=== PATIENT | female | born 1990 | race American Indian/Alaskan Native ===

== ENCOUNTER 2018-05-04 13:16 | Emergency (ER) | payer SELFPAY ==
[2018-05-04] MEDS ORDERED: NORCO PO ONE (13:43)
[2018-05-04] MEDS ORDERED: ZOFRAN ODT PO ONE (13:43)
--- NOTE | 2018-05-04 13:51 | Emergency Department Report ---
Minor Respiratory - HPI Chief Complaint: Upper Respiratory Infection Stated Complaint: CHILLS/WEAKNESS Time Seen by Provider: 05/04/18 13:38 Duration: 5 Days Pain Location: Throat, Chest Severity: moderate Minor Respiratory: Yes Rhinorrhea, Yes Sore Throat, Yes Cough (clear sputum), Yes Chest Pain, Yes Fever (chills), No Able to Tolerate Fluids (states she is vomiting), No Ear Pain, No Sick Contacts, No Hemoptysis, No Shortness of Breath ED Review of Systems ROS: Stated complaint: CHILLS/WEAKNESS Other details as noted in HPI Comment: All other systems reviewed and negative ED Past Medical Hx - Past Medical History Previous Medical History?: No - Social History Smoking Status: Current Some Day Smoker - Medications Home Medications: Home Medications Medication Instructions Recorded Confirmed Last Taken Type Azithromycin [Zithromax] 1,000 mg PO QDAY #4 tablet 06/26/14 Unknown Rx metroNIDAZOLE [Flagyl] 500 mg PO TID #30 tablet 06/26/14 Unknown Rx ALBUTEROL Inhaler (OR & NICU) 2 puff IH QID PRN #1 inhalation 05/04/18 Unknown Rx [ProAir HFA Inhaler] Azithromycin [Zithromax Z-NIKHIL] 250 mg PO DAILY #6 tablet 05/04/18 Unknown Rx HYDROcodone/APAP 5-325 [[place] 1 each PO Q4HR PRN #12 tablet 05/04/18 Unknown Rx 5/325] Ondansetron [Zofran Odt] 4 mg PO Q8HR PRN #10 tab.rapdis 05/04/18 Unknown Rx predniSONE [Deltasone] 20 mg PO QDAY #5 tab 05/04/18 Unknown Rx Minor Respiratory Exam - Exam General: Vital signs noted. No distress. Alert and acting appropriately. HEENT: Yes Pharyngeal Erythema, Yes Moist Mucous Membranes, Yes Rhinorrhea, No Pharyngeal Exudates, No Conjuctival Injection, No Frontal Tenderness, No M axillary Tenderness Ear: Neither TM Bulge, Neither TM Erythema, Neither EAC Pain, Neither EAC Discharge Neck: Yes Supple, No Adenopathy Lungs: Yes Good Air Exchange, Yes Ronchi (right posterior base), Yes Cough, No Wheezes, No Stridor, No Labored Respirations, No Retractions, No Use of Accessory Muscles, No Other Abnormal Lung Sounds Heart: Yes Regular, No Murmur Abdomen: Yes Normal Bowel Sounds, No Tenderness, No Peritoneal Signs Skin: No Rash, No Edema Neurologic: Alert and oriented, no deficits. Musculoskeletal: Unremarkable. ED Course Vital Signs 05/04/18 13:21 Temperature 98.1 F Pulse Rate 72 Respiratory 22 Rate Blood Pressure 127/88 O2 Sat by Pulse 99 Oximetry ED Medical Decision Making - Radiology Data Radiology results: report reviewed, image reviewed CXR WNL - Medical Decision Making Patient had no further nausea vomiting here in the emergency department. Vital signs are within normal limits. Patient be discharged with prescription for Z- Nikhil as well as meds for symptomatic relief will be discharged home. Critical care attestation.: If time is entered above; I have spent that time in minutes in the direct care of this critically ill patient, excluding procedure time. ED Disposition Clinical Impression: Acute bronchitis Qualifiers: Bronchitis organism: unspecified organism Qualified Code(s): J20.9 - Acute bronchitis, unspecified Disposition: DC-01 TO HOME OR SELFCARE Is pt being admited?: No Does the pt Need Aspirin: No Condition: Stable Instructions: Acute Bronchitis (ED) Referrals: OBDULIA HENRIQUEZ MD [Primary Care Provider] - 3-5 Days Time of Disposition: 14:47
--- NOTE | 2018-05-04 14:23 | XRay Report ---
CHEST 2 VIEWS INDICATION: Productive cough. COMPARISON: None similar at this institution. FINDINGS: PA and lateral chest radiographs demonstrate normal cardiomediastinal silhouette. Clear, well-expanded lungs. Intact bones. CONCLUSION: No acute disease in the chest. Thank you for the opportunity to participate in this patient's care.
[2018-05-06 12:11] VITALS: BP 127/88
== END 2018-05-04 14:58 | disposition home or self-care (01) ==
LOC: ED 13:16
DX: J20.9 Acute bronchitis, unspecified (principal); F17.200 Nicotine dependence, unspecified, uncomplicated
CPT/HCPCS: 71046; Q0162

== ENCOUNTER 2018-08-25 19:12 | Emergency (ER) | payer SELFPAY ==
--- NOTE | 2018-08-25 21:10 | Emergency Department Report ---
- General Chief Complaint: Upper Respiratory Infection Stated Complaint: HEADACHE,SWOLLEN EYES,FACE PAIN Time Seen by Provider: 08/25/18 20:15 Source: patient Mode of arrival: Ambulatory Limitations: No Limitations - History of Present Illness MD Complaint: cough, rhinorrhea, nasal congestion -: Gradual, days(s), week(s) (3) Severity: mild Quality: dull Consistency: constant Improves With: nothing Worsens With: nothing Associated Symptoms: chills, headache, rhinorrhea, nasal congestion, sore throat, cough (productive cough), other (sinus pressure). denies: myalgias, chest pain, shortness of breath, nausea, vomiting, confusion, weight loss, hoarseness, ear pain - Related Data Previous Rx's Medication Instructions Recorded Last Taken Type Azithromycin [Zithromax] 1,000 mg PO QDAY #4 tablet 06/26/14 Unknown Rx metroNIDAZOLE [Flagyl] 500 mg PO TID #30 tablet 06/26/14 Unknown Rx ALBUTEROL Inhaler (OR & NICU) 2 puff IH QID PRN #1 inhalation 05/04/18 Unknown Rx [ProAir HFA Inhaler] Azithromycin [Zithromax Z-NIKHIL] 250 mg PO DAILY #6 tablet 05/04/18 Unknown Rx HYDROcodone/APAP 5-325 [[place] 1 each PO Q4HR PRN #12 tablet 05/04/18 Unknown Rx 5/325] Ondansetron [Zofran Odt] 4 mg PO Q8HR PRN #10 tab.rapdis 05/04/18 Unknown Rx predniSONE [Deltasone] 20 mg PO QDAY #5 tab 05/04/18 Unknown Rx ALBUTEROL Inhaler (OR & NICU) 1 puff IH Q4-6H PRN #1 inha 08/25/18 Unknown Rx [ProAir HFA Inhaler] Amoxicillin [Amoxicillin TAB] 875 mg PO BID #20 tablet 08/25/18 Unknown Rx guaiFENesin/CODEINE [Robitussin AC] 5 ml PO Q6H PRN #120 ml 08/25/18 Unknown Rx predniSONE [Deltasone] 50 mg PO QDAY #5 tab 08/25/18 Unknown Rx Allergies Allergy/AdvReac Type Severity Reaction Status Date / Time No Known Allergies Allergy Unverified 06/26/14 10:55 ED Review of Systems ROS: Stated complaint: HEADACHE,SWOLLEN EYES,FACE PAIN Other details as noted in HPI Constitutional: denies: chills, fever Eyes: denies: eye pain, eye discharge, vision change ENT: denies: ear pain, throat pain Respiratory: denies: cough, shortness of breath, wheezing Cardiovascular: denies: chest pain, palpitations Endocrine: no symptoms reported Gastrointestinal: denies: abdominal pain, nausea, diarrhea Genitourinary: denies: urgency, dysuria, discharge Musculoskeletal: denies: back pain, joint swelling, arthralgia Skin: denies: rash, lesions Neurological: denies: headache, weakness, paresthesias Psychiatric: denies: anxiety, depression Hematological/Lymphatic: denies: easy bleeding, easy bruising ED Past Medical Hx - Past Medical History Previous Medical History?: No - Surgical History Past Surgical History?: No - Social History Smoking Status: Current Every Day Smoker - Medications Home Medications: Home Medications Medication Instructions Recorded Confirmed Last Taken Type Azithromycin [Zithromax] 1,000 mg PO QDAY #4 tablet 06/26/14 Unknown Rx metroNIDAZOLE [Flagyl] 500 mg PO TID #30 tablet 06/26/14 Unknown Rx ALBUTEROL Inhaler (OR & NICU) 2 puff IH QID PRN #1 inhalation 05/04/18 Unknown Rx [ProAir HFA Inhaler] Azithromycin [Zithromax Z-NIKHIL] 250 mg PO DAILY #6 tablet 05/04/18 Unknown Rx HYDROcodone/APAP 5-325 [[place] 1 each PO Q4HR PRN #12 tablet 05/04/18 Unknown Rx 5/325] Ondansetron [Zofran Odt] 4 mg PO Q8HR PRN #10 tab.rapdis 05/04/18 Unknown Rx predniSONE [Deltasone] 20 mg PO QDAY #5 tab 05/04/18 Unknown Rx ALBUTEROL Inhaler (OR & NICU) 1 puff IH Q4-6H PRN #1 inha 08/25/18 Unknown Rx [ProAir HFA Inhaler] Amoxicillin [Amoxicillin TAB] 875 mg PO BID #20 tablet 08/25/18 Unknown Rx guaiFENesin/CODEINE [Robitussin AC] 5 ml PO Q6H PRN #120 ml 08/25/18 Unknown Rx predniSONE [Deltasone] 50 mg PO QDAY #5 tab 08/25/18 Unknown Rx ED Physical Exam - General Limitations: No Limitations General appearance: alert, in no apparent distress - Head Head exam: Present: atraumatic, normocephalic - Eye Eye exam: Present: normal appearance, PERRL Pupils: Present: normal accommodation - ENT ENT exam: Present: normal exam, mucous membranes moist, other (Congestion bilaterally was as well as the right nasal turbinate. There is some tenderness with percussion of the right maxillary sinus as well. Small effusion to the left ear) - Neck Neck exam: Present: normal inspection, full ROM - Respiratory Respiratory exam: Present: normal lung sounds bilaterally, rhonchi. Absent: respiratory distress, wheezes, rales - Cardiovascular Cardiovascular Exam: Present: regular rate, normal rhythm. Absent: systolic murmur, diastolic murmur, rubs, gallop - GI/Abdominal GI/Abdominal exam: Present: soft, normal bowel sounds - Extremities Exam Extremities exam: Present: normal inspection, normal capillary refill - Back Exam Back exam: Present: normal inspection, full ROM - Neurological Exam Neurological exam: Present: alert, oriented X3 - Psychiatric Psychiatric exam: Present: normal affect, normal mood - Skin Skin exam: Present: warm, dry, intact, normal color. Absent: rash ED Course Vital Signs 08/25/18 19:16 Temperature 98.2 F Pulse Rate 101 H Respiratory 18 Rate Blood Pressure 118/74 O2 Sat by Pulse 96 Oximetry Critical care attestation.: If time is entered above; I have spent that time in minutes in the direct care of this critically ill patient, excluding procedure time. ED Disposition Clinical Impression: Cough, Sinusitis, Bronchitis Disposition: DC- TO HOME OR SELFCARE Is pt being admited?: No Does the pt Need Aspirin: No Condition: Stable Instructions: Chronic Bronchitis (ED), Acute Bronchitis (ED), Sinusitis (ED) Prescriptions: Amoxicillin [Amoxicillin TAB] 875 mg PO BID #20 tablet predniSONE [Deltasone] 50 mg PO QDAY #5 tab ALBUTEROL Inhaler (OR & NICU) [ProAir HFA Inhaler] 1 puff IH Q4-6H PRN #1 inha PRN Reason: Cough guaiFENesin/CODEINE [Robitussin AC] 5 ml PO Q6H PRN #120 ml PRN Reason: Cough Referrals: DIANNE MARTIN MD [Primary Care Provider] - 3-5 Days Forms: Work/School Release Form(ED)
[2018-08-25 21:37] VITALS: BP 123/72
== END 2018-08-25 21:37 | disposition home or self-care (01) ==
LOC: ED 19:12
DX: J40 Bronchitis, not specified as acute or chronic (principal); J32.9 Chronic sinusitis, unspecified; F17.200 Nicotine dependence, unspecified, uncomplicated
CPT/HCPCS: 99282

== ENCOUNTER 2020-01-01 13:56 | Emergency (ER) | payer MEDICAID ==
[2020-01-01 14:07] VITALS: BP 110/60
--- NOTE | 2020-01-01 18:39 | Emergency Department Report ---
ED General Adult HPI - General Chief complaint: Skin/Abscess/Foreign Body Stated complaint: CHEST DISCOMFORT/ANXIETY/BREAST Time Seen by Provider: 01/01/20 17:49 Source: patient Mode of arrival: Wheelchair Limitations: No Limitations - History of Present Illness Initial comments: Patient is a 29-year-old female presents emergency room with complaints of lumps in her left breast that began a week ago. She states that they have been increasing in number and have become painful. She states her last menstrual cycle was 2 weeks ago. She states that she also noticed a lump present to her right axilla. She denies any fever, vomiting, diarrhea, weight loss, chills, drainage, nipple discharge. She states that her mother has a history of breast cancer. She has a past medical history of eczema and depression. She denies any allergies to medications. - Related Data Previous Rx's Medication Instructions Recorded Last Taken Type Azithromycin [Zithromax] 1,000 mg PO QDAY #4 tablet 06/26/14 Unknown Rx metroNIDAZOLE [Flagyl] 500 mg PO TID #30 tablet 06/26/14 Unknown Rx Albuterol Mdi (or & Nicu Only) 2 puff IH QID PRN #1 inhalation 05/04/18 Unknown Rx [ProAir HFA Inhaler] Azithromycin [Zithromax Z-NIKHIL] 250 mg PO DAILY #6 tablet 05/04/18 Unknown Rx HYDROcodone/APAP 5-325 [[place] 1 each PO Q4HR PRN #12 tablet 05/04/18 Unknown Rx 5/325] Ondansetron [Zofran Odt] 4 mg PO Q8HR PRN #10 tab.rapdis 05/04/18 Unknown Rx predniSONE [Deltasone] 20 mg PO QDAY #5 tab 05/04/18 Unknown Rx Albuterol Mdi (or & Nicu Only) 1 puff IH Q4-6H PRN #1 inha 08/25/18 Unknown Rx [ProAir HFA Inhaler] Amoxicillin [Amoxicillin TAB] 875 mg PO BID #20 tablet 08/25/18 Unknown Rx guaiFENesin/CODEINE [Robitussin AC] 5 ml PO Q6H PRN #120 ml 08/25/18 Unknown Rx predniSONE [Deltasone] 50 mg PO QDAY #5 tab 08/25/18 Unknown Rx Allergies Allergy/AdvReac Type Severity Reaction Status Date / Time No Known Allergies Allergy Unverified 06/26/14 10:55 ED Review of Systems ROS: Stated complaint: CHEST DISCOMFORT/ANXIETY/BREAST Other details as noted in HPI Comment: All other systems reviewed and negative ED Past Medical Hx - Past Medical History Previous Medical History?: No - Surgical History Past Surgical History?: No - Social History Smoking Status: Current Every Day Smoker - Medications Home Medications: Home Medications Medication Instructions Recorded Confirmed Last Taken Type Azithromycin [Zithromax] 1,000 mg PO QDAY #4 tablet 06/26/14 Unknown Rx metroNIDAZOLE [Flagyl] 500 mg PO TID #30 tablet 06/26/14 Unknown Rx Albuterol Mdi (or & Nicu Only) 2 puff IH QID PRN #1 inhalation 05/04/18 Unknown Rx [ProAir HFA Inhaler] Azithromycin [Zithromax Z-NIKHIL] 250 mg PO DAILY #6 tablet 05/04/18 Unknown Rx HYDROcodone/APAP 5-325 [[place] 1 each PO Q4HR PRN #12 tablet 05/04/18 Unknown Rx 5/325] Ondansetron [Zofran Odt] 4 mg PO Q8HR PRN #10 tab.rapdis 05/04/18 Unknown Rx predniSONE [Deltasone] 20 mg PO QDAY #5 tab 05/04/18 Unknown Rx Albuterol Mdi (or & Nicu Only) 1 puff IH Q4-6H PRN #1 inha 08/25/18 Unknown Rx [ProAir HFA Inhaler] Amoxicillin [Amoxicillin TAB] 875 mg PO BID #20 tablet 08/25/18 Unknown Rx guaiFENesin/CODEINE [Robitussin AC] 5 ml PO Q6H PRN #120 ml 08/25/18 Unknown Rx predniSONE [Deltasone] 50 mg PO QDAY #5 tab 08/25/18 Unknown Rx ED Physical Exam - General Limitations: No Limitations General appearance: alert, in no apparent distress - Head Head exam: Present: atraumatic, normocephalic - Eye Eye exam: Present: normal appearance - ENT ENT exam: Present: mucous membranes moist - Respiratory Respiratory exam: Present: normal lung sounds bilaterally. Absent: respiratory distress, wheezes, rales, rhonchi, stridor, accessory muscle use, decreased breath sounds, prolonged expiratory - Cardiovascular Cardiovascular Exam: Present: regular rate, normal rhythm, normal heart sounds. Absent: systolic murmur, diastolic murmur, rubs, gallop - Neurological Exam Neurological exam: Present: alert, oriented X3 - Psychiatric Psychiatric exam: Present: normal affect, normal mood - Skin Skin exam: Present: warm, dry, other (vest finisher: JESSICA rae, there are multiple nodules present to the left breast at the 12 oclock and 3oclock position, no nipple retraction, no skin changes, no erythema, no nodules in the left axilla, no peau d'orange, no nipple discharge, in the right axilla there is a 1 cm area of induration and erythema, no fluctuance, no drainage, no necrosis, no obvious palpable nodules to the right breast) ED Course Vital Signs 01/01/20 14:06 Temperature 98.7 F Pulse Rate 65 Respiratory 18 Rate Blood Pressure 110/60 [Right] O2 Sat by Pulse 100 Oximetry ED Medical Decision Making - Medical Decision Making Patient is a 29-year-old female presents emergency room with complaints of lumps in her left breast that began a week ago. She states that they have been increasing in number and have become painful. She states her last menstrual cycle was 2 weeks ago. She states that she also noticed a lump present to her right axilla. She denies any fever, vomiting, diarrhea, weight loss, chills, drainage, nipple discharge. She states that her mother has a history of breast cancer. She has a past medical history of eczema and depression. She denies any allergies to medications. vitals are normal. on exam: vest finisher: JESSICA rae, there are multiple nodules present to the left breast at the 12 oclock and 3oclock position, no nipple retraction, no skin changes, no erythema, no nodules in the left axilla, no peau d'orange, no nipple discharge, in the right axilla there is a 1 cm area of induration and erythema, no fluctuance, no drainage, no necrosis, no obvious palpable nodules to the right breast. No obvious drainable abscess at this time, does not need I&D at this time. Discussed with patient to use warm compresses and have the area reexamined in [address] pt on keflex for very mild infection. Patient will be referred to [facility] for further evaluation of breast nodules. Basic labs ordered to evaluate for CBC abnormalities or inflammatory abnormalities. Advised patient that we would get lab work and then I would give her the appropriate referrals. I called the lab to see what was taking so long for the patient's lab work. The lab states that they are having IT issues and that the labs are not crossing over. I filled out a paper form and sent it down to the lab for patient to have lab work done. I was advised by nurse that patient no longer wanted to wait and he advised patient that she would need to sign out AGAINST MEDICAL ADVICE. Patient refused to sign out AGAINST MEDICAL ADVICE and left from the emergency department. She is alert and oriented x4, she has decision-making capacity, she has no distracting injury. pt left prior to receiving blood work, receiving keflex prescription, and referrals. Critical care attestation.: If time is entered above; I have spent that time in minutes in the direct care of this critically ill patient, excluding procedure time. ED Disposition Clinical Impression: Breast nodule, Axillary abscess Disposition: LEFT AGAINST MED ADVICE Is pt being admited?: No Does the pt Need Aspirin: No Condition: Undetermined Referrals: PRIMARY CAREMD [Primary Care Provider] - RIK VALENTE MD [Staff Physician] - [facility] [Provider Group] - [facility] [Provider Group] - [facility]
== END 2020-01-01 19:15 | disposition left against medical advice (07) ==
LOC: ED 13:56
DX: L02.412 Cutaneous abscess of left axilla (principal); N63.0 Unspecified lump in unspecified breast; F17.200 Nicotine dependence, unspecified, uncomplicated; Z79.2 Long term (current) use of antibiotics; Z79.899 Other long term (current) drug therapy

== ENCOUNTER 2020-07-07 11:13 | Emergency (ER) | payer MEDICAID ==
[2020-07-07] MEDS ORDERED: diphenhydrAMINE 50 MG/ML VIAL IV ONE (12:34)
[2020-07-07] MEDS ORDERED: METOCLOPRAMIDE 10 MG/2 ML INJ IV ONE (12:34)
[2020-07-07] MEDS ORDERED: LORazepam 2 MG/ML VIAL IM PRN (12:35)
[2020-07-07] MEDS ORDERED: HALOPERIDOL LACTATE 5 MG/1 ML INJ IM PRN (12:35)
[2020-07-07 12:43] LABS: Bilirubin,Urine NEG (Negative); Blood,Urine SM (Negative); Color,Urine Yellow (Yellow); Mucus,Urine FEW /HPF; Protein,Urine <15 mg/dL mg/dL (Negative); Urobilinogen,Urine < 2.0 mg/dL (<2.0)
[2020-07-07 12:46] LABS: HCG Qualitative,Urine Negative (Negative)
[2020-07-07 12:49] LABS: Amphetamine Screen,Urine Negative; Benzodiazepines Screen,Urine Negative; Methadone Screen,Urine Negative; Opiate Screen,Urine Negative
[2020-07-07] MEDS ORDERED: D5W/0.45% NACL 1,000 ML IV SCH (13:00)
[2020-07-07 13:19] LABS: Cannabinoid Screen,Urine PRESUMPTIVE POSITIVE; Cocaine Screen,Urine PRESUMPTIVE POSITIVE
--- NOTE | 2020-07-07 13:38 | Cat Scan Report ---
CT HEAD WITHOUT CONTRAST INDICATION / CLINICAL INFORMATION: dizzy weak intoxicated. TECHNIQUE: All CT scans at this location are performed using CT dose reduction for ALARA by means of automated exposure control. COMPARISON: None available. FINDINGS: HEMORRHAGE: None. EXTRA-AXIAL SPACES: Normal in size and morphology for the patient's age. VENTRICULAR SYSTEM: Normal in size and morphology for the patient's age. CEREBRAL PARENCHYMA: No significant abnormality. No acute territorial infarct. MIDLINE SHIFT / HERNIATION: None. CEREBELLUM / BRAINSTEM: No significant abnormality. ORBITS: Normal as visualized. SOFT TISSUES: No significant abnormality. SKULL: No significant abnormality. PARANASAL SINUSES / MASTOID AIR CELLS: Normal as visualized. ADDITIONAL FINDINGS: None. IMPRESSION: 1. No acute intracranial abnormality. Signer Name: Omi Cordero MD Signed: 07/07/2020 1:34 PM Workstation Name: [id number]
[2020-07-07 13:54] LABS: Hematocrit 35.2 % (30.3-42.9); Hemoglobin 12.8 gm/dl (10.1-14.3)
[2020-07-07 14:06] LABS: Alanine Aminotransferase 12 units/L (7-56); Albumin 4.2 g/dL (3.9-5); BUN/Creatinine Ratio 15; Blood Urea Nitrogen 12 mg/dL (7-17); Calcium 8.6 mg/dL (8.4-10.2); Hemolysis Index 5
[2020-07-07] MEDS ORDERED: POTASSIUM CHLORIDE ER 20 MEQ TAB PO ONE (15:16)
--- NOTE | 2020-07-07 15:17 | Emergency Department Report ---
ED General Adult HPI - General Chief complaint: Medical Clearance Stated complaint: I smoked a blunt Time Seen by Provider: 07/07/20 12:05 Source: patient, EMS ( EMS documentation not available at time of chart dictation ), RN notes reviewed Mode of arrival: Stretcher Limitations: Other (Patient is intoxicated) - History of Present Illness Initial comments: The patient was evaluated in the emergency department for symptoms described in the history of present illness. He/she was evaluated in the context of the global COVID-19 pandemic, which necessitated consideration that the patient might be at risk for infection with the virus that causes COVID-19. Institutional protocols and algorithms that pertain to the evaluation of patients at risk for COVID-19 are in a state of rapid change based on information released by regulatory bodies including the CDC and federal and state organizations. These policies and algorithms were followed during the patient's care in the emergency department. Please note that these policies, procedures and recommendations changed on a rapid basis. During the history and physical examination, I am chaperoned by nurse GIANNI HERNANDEZ This is a 30-year-old female. She is brought to the hospital by emergency medical services. Patient reports that she recreationally consumes marijuana and cocaine yesterday. The patient reports that she feels off, weak, nauseous, malaise, and dizzy. She is not homicidal or suicidal. She endorses out of body sensation. Patient denies physical pain, the patient is not sure she is having hallucinations. The patient states that she was consuming these drugs for recreational reasons. -: Gradual Severity scale (0 -10): 0 Consistency: constant Improves with: rest Worsens with: movement - Related Data Previous Rx's Medication Instructions Recorded Last Taken Type Azithromycin [Zithromax] 1,000 mg PO QDAY #4 tablet 06/26/14 Unknown Rx metroNIDAZOLE [Flagyl] 500 mg PO TID #30 tablet 06/26/14 Unknown Rx Albuterol Mdi (or & Nicu Only) 2 puff IH QID PRN #1 inhalation 05/04/18 Unknown Rx [ProAir HFA Inhaler] Azithromycin [Zithromax Z-NIKHIL] 250 mg PO DAILY #6 tablet 05/04/18 Unknown Rx Ondansetron [Zofran Odt] 4 mg PO Q8HR PRN #10 tab.rapdis 05/04/18 Unknown Rx predniSONE [Deltasone] 20 mg PO QDAY #5 tab 05/04/18 Unknown Rx Albuterol Mdi (or & Nicu Only) 1 puff IH Q4-6H PRN #1 inha 08/25/18 Unknown Rx [ProAir HFA Inhaler] Amoxicillin [Amoxicillin TAB] 875 mg PO BID #20 tablet 08/25/18 Unknown Rx predniSONE [Deltasone] 50 mg PO QDAY #5 tab 08/25/18 Unknown Rx Potassium Chloride 20 meq PO QDAY #30 packet 07/07/20 Unknown Rx Allergies Allergy/AdvReac Type Severity Reaction Status Date / Time No Known Allergies Allergy Unverified 06/26/14 10:55 ED Review of Systems ROS: Stated complaint: AMS Other details as noted in HPI Constitutional: denies: fever Eyes: denies: eye discharge ENT: denies: epistaxis Respiratory: denies: cough Cardiovascular: other (Dizziness) Gastrointestinal: nausea Neurological: weakness Psychiatric: anxiety. denies: homicidal thoughts, suicidal thoughts ED Past Medical Hx - Past Medical History Previous Medical History?: No - Surgical History Past Surgical History?: No - Social History Smoking Status: Current Every Day Smoker - Medications Home Medications: Home Medications Medication Instructions Recorded Confirmed Last Taken Type Azithromycin [Zithromax] 1,000 mg PO QDAY #4 tablet 06/26/14 Unknown Rx metroNIDAZOLE [Flagyl] 500 mg PO TID #30 tablet 06/26/14 Unknown Rx Albuterol Mdi (or & Nicu Only) 2 puff IH QID PRN #1 inhalation 05/04/18 Unknown Rx [ProAir HFA Inhaler] Azithromycin [Zithromax Z-NIKHIL] 250 mg PO DAILY #6 tablet 05/04/18 Unknown Rx Ondansetron [Zofran Odt] 4 mg PO Q8HR PRN #10 tab.rapdis 05/04/18 Unknown Rx predniSONE [Deltasone] 20 mg PO QDAY #5 tab 05/04/18 Unknown Rx Albuterol Mdi (or & Nicu Only) 1 puff IH Q4-6H PRN #1 inha 08/25/18 Unknown Rx [ProAir HFA Inhaler] Amoxicillin [Amoxicillin TAB] 875 mg PO BID #20 tablet 08/25/18 Unknown Rx predniSONE [Deltasone] 50 mg PO QDAY #5 tab 08/25/18 Unknown Rx Potassium Chloride 20 meq PO QDAY #30 packet 07/07/20 Unknown Rx ED Physical Exam - General Limitations: Other (Patient is intoxicated) General appearance: appears intoxicated, anxious - Head Head exam: Present: atraumatic, normocephalic - Eye Eye exam: Present: normal appearance, PERRL, EOMI, other (Visual acuity is intact to finger counting and color perception to a close distance). Absent: nystagmus - ENT ENT exam: Present: normal exam, normal orophraynx, mucous membranes moist, normal external ear exam - Neck Neck exam: Present: normal inspection, full ROM. Absent: tenderness, meningism us - Respiratory Respiratory exam: Present: normal lung sounds bilaterally. Absent: respiratory distress, wheezes, rales, rhonchi, stridor, decreased breath sounds - Cardiovascular Cardiovascular Exam: Present: regular rate, normal rhythm, normal heart sounds. Absent: bradycardia, tachycardia, irregular rhythm, systolic murmur, diastolic murmur, rubs, gallop - GI/Abdominal GI/Abdominal exam: Present: soft. Absent: distended, tenderness, guarding, rebound, rigid, pulsatile mass - Extremities Exam Extremities exam: Present: normal inspection, full ROM, other (2+ pulses noted in the bilateral upper and lower extremities. There is no palpable cord. negative Homans sign. Muscular compartments are soft. The pelvis is stable.). Absent: pedal edema, calf tenderness - Back Exam Back exam: Present: normal inspection. Absent: tenderness, CVA tenderness (R), CVA tenderness (L), paraspinal tenderness, vertebral tenderness - Neurological Exam Neurological exam: Present: other (No facial droop. Tongue midline. Extraocular movements intact bilaterally. Facial sensation intact to light touch in V1, V2, V3 distribution bilaterally. 5 and a 5 strength in 4 extremities. Sensation intact to light touch in 4 extremities.) - Psychiatric Psychiatric exam: Present: anxious. Absent: homicidal ideation, suicidal idea tion - Skin Skin exam: Present: warm, dry, intact, normal color. Absent: rash ED Course Vital Signs 07/07/20 07/07/20 07/07/20 11:38 11:45 11:56 Temperature 97.9 F Pulse Rate 67 69 Respiratory 17 18 Rate Blood Pressure 128/83 Blood Pressure 121/74 [Left] O2 Sat by Pulse 98 100 100 Oximetry 04/09/2107/07/20 07/07/20 12:00 12:16 12:30 Temperature Pulse Rate 65 67 69 Respiratory 23 20 21 Rate Blood Pressure 105/81 105/81 Blood Pressure [Left] O2 Sat by Pulse 100 100 100 Oximetry 07/07/20 07/07/20 07/07/20 12:46 13:00 13:15 Temperature Pulse Rate 67 74 80 Respiratory 16 13 16 Rate Blood Pressure 124/79 124/79 137/89 Blood Pressure [Left] O2 Sat by Pulse 96 100 Oximetry 07/07/20 07/07/20 07/07/20 13:40 13:46 14:00 Temperature Pulse Rate 95 H 64 64 Respiratory 17 19 16 Rate Blood Pressure Blood Pressure [Left] O2 Sat by Pulse 100 100 100 Oximetry 07/07/20 07/07/20 07/07/20 14:16 14:30 14:46 Temperature Pulse Rate 76 65 67 Respiratory 14 15 14 Rate Blood Pressure 111/62 111/73 Blood Pressure [Left] O2 Sat by Pulse 100 100 99 Oximetry 07/07/20 07/07/20 07/07/20 15:00 15:16 15:30 Temperature Pulse Rate 71 72 77 Respiratory 13 14 16 Rate Blood Pressure 111/73 109/73 109/73 Blood Pressure [Left] O2 Sat by Pulse 99 99 99 Oximetry 07/07/20 17:20 Temperature Pulse Rate 67 Respiratory 16 Rate Blood Pressure Blood Pressure 108/70 [Left] O2 Sat by Pulse Oximetry ED Medical Decision Making - Lab Data Result diagrams: 07/07/20 13:08 07/07/20 13:08 Vital Signs 07/07/20 11:56 Temperature 97.9 F Pulse Rate 69 Respiratory 18 Rate Blood Pressure 121/74 [Left] O2 Sat by Pulse 100 Oximetry Lab Results 07/07/20 07/07/20 07/07/20 Range/Units 12:11 12:11 13:08 Hgb 12.8 (10.1-14.3) gm/dl Hct 35.2 (30.3-42.9) % Plt Count 413 (140-440) K/mm3 Sodium (137-145) mmol/L Potassium (3.6-5.0) mmol/L Chloride (98-107) mmol/L Carbon Dioxide (22-30) mmol/L Anion Gap mmol/L BUN (7-17) mg/dL Creatinine (0.6-1.2) mg/dL Estimated GFR ml/min BUN/Creatinine Ratio % Glucose (65-100) mg/dL Calcium (8.4-10.2) mg/dL Magnesium (1.7-2.3) mg/dL Total Bilirubin (0.1-1.2) mg/dL AST (5-40) units/L ALT (7-56) units/L Alkaline Phosphatase (35-129) units/L Total Creatine Kinase (30-135) units/L Total Protein (6.3-8.2) g/dL Albumin (3.9-5) g/dL Albumin/Globulin Ratio % HCG, Quant (0-4) mIU/mL Urine Color Yellow (Yellow) Urine Turbidity Cloudy (Clear) Urine pH 7.0 (5.0-7.0) Ur Specific [place] 1.014 (1.003-1.030) Urine Protein <15 mg/dl (Negative) mg/dL Urine Glucose (UA) Neg (Negative) mg/dL Urine Ketones Neg (Negative) mg/dL Urine Blood Sm (Negative) Urine Nitrite Neg (Negative) Urine Bilirubin Neg (Negative) Urine Urobilinogen < 2.0 (<2.0) mg/dL Ur Leukocyte Esterase Mod (Negative) Urine WBC (Auto) 11.0 H (0.0-6.0) /HPF Urine RBC (Auto) 3.0 (0.0-6.0) /HPF U Epithel Cells (Auto) 29.0 H (0-13.0) /HPF Urine Mucus Few /HPF Urine Yeast (Budding) Few /HPF Urine HCG, Qual Negative (Negative) Salicylates (2.8-20.0) mg/dL Urine Opiates Screen Negative Urine Methadone Screen Negative Acetaminophen (10.0-30.0) ug/mL Ur Barbiturates Screen Negative Ur Phencyclidine Scrn Negative Ur Amphetamines Screen Negative U Benzodiazepines Scrn Negative Urine Cocaine Screen Presumptive positive U Marijuana (THC) Screen Presumptive positive Drugs of Abuse Note Disclamer Plasma/Serum Alcohol (0-0.07) % 07/07/20 07/07/20 07/07/20 Range/Units 13:08 13:08 13:08 Hgb (10.1-14.3) gm/dl Hct (30.3-42.9) % Plt Count (140-440) K/mm3 Sodium 137 (137-145) mmol/L Potassium 3.4 L (3.6-5.0) mmol/L Chloride 104.1 (98-107) mmol/L Carbon Dioxide 22 (22-30) mmol/L Anion Gap 14 mmol/L BUN 12 (7-17) mg/dL Creatinine 0.8 (0.6-1.2) mg/dL Estimated GFR > 60 ml/min BUN/Creatinine Ratio 15 % Glucose 169 H (65-100) mg/dL Calcium 8.6 (8.4-10.2) mg/dL Magnesium 1.80 (1.7-2.3) mg/dL Total Bilirubin 0.40 (0.1-1.2) mg/dL AST 22 (5-40) units/L ALT 12 (7-56) units/L Alkaline Phosphatase 73 (35-129) units/L Total Creatine Kinase 289 H (30-135) units/L Total Protein 7.2 (6.3-8.2) g/dL Albumin 4.2 (3.9-5) g/dL Albumin/Globulin Ratio 1.4 % HCG, Quant < 2 (0-4) mIU/mL Urine Color (Yellow) Urine Turbidity (Clear) Urine pH (5.0-7.0) Ur Specific [place] (1.003-1.030) Urine Protein (Negative) mg/dL Urine Glucose (UA) (Negative) mg/dL Urine Ketones (Negative) mg/dL Urine Blood (Negative) Urine Nitrite (Negative) Urine Bilirubin (Negative) Urine Urobilinogen (<2.0) mg/dL Ur Leukocyte Esterase (Negative) Urine WBC (Auto) (0.0-6.0) /HPF Urine RBC (Auto) (0.0-6.0) /HPF U Epithel Cells (Auto) (0-13.0) /HPF Urine Mucus /HPF Urine Yeast (Budding) /HPF Urine HCG, Qual (Negative) Salicylates < 0.3 L (2.8-20.0) mg/dL Urine Opiates Screen Urine Methadone Screen Acetaminophen (10.0-30.0) ug/mL Ur Barbiturates Screen Ur Phencyclidine Scrn Ur Amphetamines Screen U Benzodiazepines Scrn Urine Cocaine Screen U Marijuana (THC) Screen Drugs of Abuse Note Plasma/Serum Alcohol (0-0.07) % 04/06/21 04/06/21 Range/Units 13:08 13:08 Hgb (10.1-14.3) gm/dl Hct (30.3-42.9) % Plt Count (140-440) K/mm3 Sodium (137-145) mmol/L Potassium (3.6-5.0) mmol/L Chloride (98-107) mmol/L Carbon Dioxide (22-30) mmol/L Anion Gap mmol/L BUN (7-17) mg/dL Creatinine (0.6-1.2) mg/dL Estimated GFR ml/min BUN/Creatinine Ratio % Glucose (65-100) mg/dL Calcium (8.4-10.2) mg/dL Magnesium (1.7-2.3) mg/dL Total Bilirubin (0.1-1.2) mg/dL AST (5-40) units/L ALT (7-56) units/L Alkaline Phosphatase (35-129) units/L Total Creatine Kinase (30-135) units/L Total Protein (6.3-8.2) g/dL Albumin (3.9-5) g/dL Albumin/Globulin Ratio % HCG, Quant (0-4) mIU/mL Urine Color (Yellow) Urine Turbidity (Clear) Urine pH (5.0-7.0) Ur Specific [place] (1.003-1.030) Urine Protein (Negative) mg/dL Urine Glucose (UA) (Negative) mg/dL Urine Ketones (Negative) mg/dL Urine Blood (Negative) Urine Nitrite (Negative) Urine Bilirubin (Negative) Urine Urobilinogen (<2.0) mg/dL Ur Leukocyte Esterase (Negative) Urine WBC (Auto) (0.0-6.0) /HPF Urine RBC (Auto) (0.0-6.0) /HPF U Epithel Cells (Auto) (0-13.0) /HPF Urine Mucus /HPF Urine Yeast (Budding) /HPF Urine HCG, Qual (Negative) Salicylates (2.8-20.0) mg/dL Urine Opiates Screen Urine Methadone Screen Acetaminophen 5.0 L (10.0-30.0) ug/mL Ur Barbiturates Screen Ur Phencyclidine Scrn Ur Amphetamines Screen U Benzodiazepines Scrn Urine Cocaine Screen U Marijuana (THC) Screen Drugs of Abuse Note Plasma/Serum Alcohol < 0.01 (0-0.07) % Vital Signs 07/07/20 07/07/20 07/07/20 11:38 11:45 11:56 Temperature 97.9 F Pulse Rate 67 69 Respiratory 17 18 Rate Blood Pressure 128/83 Blood Pressure 121/74 [Left] O2 Sat by Pulse 98 100 100 Oximetry 07/07/20 07/07/20 07/07/20 12:00 12:16 12:30 Temperature Pulse Rate 65 67 69 Respiratory 23 20 21 Rate Blood Pressure 105/81 105/81 Blood Pressure [Left] O2 Sat by Pulse 100 100 100 Oximetry 07/07/20 07/07/20 07/07/20 12:46 13:00 13:15 Temperature Pulse Rate 67 74 80 Respiratory 16 13 16 Rate Blood Pressure 124/79 124/79 137/89 Blood Pressure [Left] O2 Sat by Pulse 96 100 Oximetry 07/07/20 07/07/20 07/07/20 13:40 13:46 14:00 Temperature Pulse Rate 95 H 64 64 Respiratory 17 19 16 Rate Blood Pressure Blood Pressure [Left] O2 Sat by Pulse 100 100 100 Oximetry 07/07/20 07/07/20 07/07/20 14:16 14:30 14:46 Temperature Pulse Rate 76 65 67 Respiratory 14 15 14 Rate Blood Pressure 111/62 111/73 Blood Pressure [Left] O2 Sat by Pulse 100 100 99 Oximetry 07/07/20 07/07/20 07/07/20 15:00 15:16 15:30 Temperature Pulse Rate 71 72 77 Respiratory 13 14 16 Rate Blood Pressure 111/73 109/73 109/73 Blood Pressure [Left] O2 Sat by Pulse 99 99 99 Oximetry 07/07/20 17:20 Temperature Pulse Rate 67 Respiratory 16 Rate Blood Pressure Blood Pressure 108/70 [Left] O2 Sat by Pulse Oximetry - EKG Data -: EKG Interpreted by Mi EKG shows normal: sinus rhythm Rate: normal - EKG Data When compared to previous EKG there are: previous EKG unavailable 07/07/20 16:58 EKG interpreted at 12: 15 Sinus rhythm, 73 bpm. Normal axis, QTC prolonged, 477 ms. Premature atrial com plex, high left ventricular voltage, question juvenile T wave inversion V2. Abnormal EKG. Not a STEMI. - Radiology Data Radiology results: report reviewed, image reviewed CT HEAD WITHOUT CONTRAST INDICATION / CLINICAL INFORMATION: dizzy weak intoxicated. TECHNIQUE: All CT scans at this location are performed using CT dose reduction for ALARA by means of automated exposure control. COMPARISON: None available. FINDINGS: HEMORRHAGE: None. EXTRA-AXIAL SPACES: Normal in size and morphology for the patient's age. VENTRICULAR SYSTEM: Normal in size and mo rphology for the patient's age. CEREBRAL PARENCHYMA: No significant abnormality. No acute territorial infarct. MIDLINE SHIFT / HERNIATION: None. CEREBELLUM / BRAINSTEM: No significant abnormality. ORBITS: Normal as visualized. SOFT TISSUES: No significant abnormality. SKULL: No significant abnormality. PARANASAL SINUSES / MASTOID AIR CELLS: Normal as visualized. ADDITIONAL FINDINGS: None. IMPRESSION: 1. No acute intracranial abnormality. Signer Name: Omi Cordero MD Signed: 07/07/2020 12:34 PM Workstation Name: [id number] - Medical Decision Making Differential diagnosis, including but not limited to: Cocaine intoxication, marijuana intoxication, polysubstance intoxication, intracranial injury assessment and plan: 30-year-old female who is clinically intoxicated at this time, without evidence of blunt trauma or penetrating trauma, who is anxious, but not homicidal, not suicidal, and cooperative. Laboratory studies unremarkable for emergent toxicologic ingestion which would require emergent intervention or antidote at this time. She is moving 4 extremities, has become clinically more sober while here, has had no active vomiting, and is able to ambulate with minimal assistance. Patient provided verbal consent for her medical information to be discussed with family and godmother. Contacted got brother at listed phone number, nobody answered, voicemail box was full, so we were unable to leave a message for call back. Patient's listed phone number is actually her phone number, and does not attach or connect to either her aunt, or her mother. The patient is observed in this department for hours without clinical decompensation, with no active vomiting, and after appropriate laboratory studies and radiographic/radiology studies, it appears that emergent medical conditions have been excluded. Patient may be discharged once clinically sober, or once a sober friend, family member can come by and pick her up. Critical care attestation.: If time is entered above; I have spent that time in minutes in the direct care of this critically ill patient, excluding procedure time. ED Disposition Clinical Impression: History of cocaine abuse, History of marijuana use, Hypokalemia Disposition: DC-01 TO HOME OR SELFCARE Is pt being admited?: No Does the pt Need Aspirin: No Condition: Good Instructions: Stimulant Use Disorder-Cocaine, Cannabis Use Disorder Additional Instructions: We recommend that the patient avoid consumption of cocaine, marijuana, alcohol, and recreational drugs. Consumption of the aforementioned may cause addiction, , disability, paralysis, loss of quality of life. We also recommend that the patient not drive or operate motor vehicles for the next 6 months, or until cleared to do so by a primary care doctor. We recommend that the patient follow-up with a primary care doctor within the next week. Please take the potassium supplementation as directed. Please return to the emergency room right away with new pain, worsened pain, migration of pain, projectile vomiting, change in mental status, confusion, inability to tolerate liquid feeds, new, worsened or different symptoms not present on the initial emergency room evaluation. Prescriptions: Potassium Chloride 20 meq PO QDAY #30 packet Referrals: RIK RODRIGUEZ MD [Staff Physician] - 3-5 Days [facility] [Provider Group] - 3-5 Days Forms: Work/School Release Form(ED) Time of Disposition: 17:04 (Patient may be discharged when she is alert and oriented x3, clinically sober, walks with a steady gait, and exhibits decision- making capacity.)
[2020-07-07 17:21] VITALS: BP 108/70
--- NOTE | 2020-07-08 12:07 | Electrocardiograph Report ---
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
== END 2020-07-07 17:34 | disposition home or self-care (01) ==
LOC: ED 11:13
DX: F14.10 Cocaine abuse, uncomplicated (principal); F12.10 Cannabis abuse, uncomplicated; E87.6 Hypokalemia; F17.200 Nicotine dependence, unspecified, uncomplicated; Z79.899 Other long term (current) drug therapy
CPT/HCPCS: 36415; 70450; 80053; 80307; 81001; 81025; 82550; 83735; 84702; 85014; 85018; 85049; 87086; 93005; 96361; 96374; 96375; 99284; J1200; J2765; 80320; G0480; J1630